=== PATIENT | female | born 1970 ===

== ENCOUNTER 2018-01-13 18:11 | Emergency (ER) | payer BC ==
[2018-01-13 18:28] VITALS: O2SAT 98
[2018-01-13 18:58] LABS: BASO % 0.4 % (0.0-2.0); EOS # 0.5 K/uL (0.0-0.7); EOS % 6.8 % (0.0-4.0); HEMOGLOBIN 11.7 g/dL (12.0-16.0); LYMPH # 1.9 K/uL (1.0-4.3); LYMPH % 27.6 % (20.0-40.0); MEAN CELL VOLUME 87.7 fl (81.0-99.0); MEAN CORPUSCULAR HEMOGLOBIN 29.1 pg (27.0-31.0); MEAN CORPUSCULAR HGB CONC 33.1 g/dL (33.0-37.0); MEAN PLATELET VOLUME 9.3 fl (7.2-11.7); MONO % 14.1 % (0.0-10.0); NEUT # 3.5 K/uL (1.8-7.0); NEUT % 51.1 % (50.0-75.0); NRBC % 0.1 % (0.0-0.0); RBC 4.04 Mil/uL (3.80-5.20); RED CELL DISTRIBUTION WIDTH 12.2 % (11.5-14.5); WHITE BLOOD COUNT 6.9 K/uL (4.8-10.8)
--- NOTE | 2018-01-13 18:58 | ED PDOC ---
HPI: SOB/CHF/COPD Time Seen by Provider: 01/13/18 18:32 Chief Complaint (Nursing): Shortness Of Breath Chief Complaint (Provider): Difficulty breathing History Per: Patient History/Exam Limitations: no limitations Onset/Duration Of Symptoms: Hrs (at 11 am ) Current Symptoms Are (Timing): Better Additional Complaint(s): 47 year old female with no significant past medical history presents to the ED with difficulty breathing. Patient states symptoms started a couple of weeks ago and intermittently bothers her. Today, at 11 am, she began having difficulty breathing and it has been continuous since then. She notes, that it was worse at 11 and has been getting better. Patient denies any chest pain, leg pain, cough, fever or any other associated complaints. She denies having this problem in the past and has not seen a PMD in over a year. Patient is not currently on control and has not recently travelled. PMD: none Past Medical History Reviewed: Historical Data, Nursing Documentation, Vital Signs Vital Signs: Last Vital Signs Temp 98.7 F 01/13/18 18:23 Pulse 95 H 01/13/18 18:23 Resp 19 01/13/18 18:40 BP 122/77 01/13/18 18:23 Pulse Ox 98 01/13/18 18:23 - Medical History PMH: No Chronic Diseases Denies: Chronic Kidney Disease - Surgical History Surgical History: No Surg Hx - Family History Family History: States: No Known Family Hx - Home Medications Home Medications: Ambulatory Orders Medication Instructions Recorded RX: No Known Home Med 01/13/18 - Allergies Allergies/Adverse Reactions: Allergies Allergy/AdvReac Type Severity Reaction Status Date / Time No Known Allergies Allergy Verified 01/13/18 18:28 Wells Criteria for PE - Wells Criteria for Pulmonary Embolism Clinical Signs and Symptoms of DVT: No P.E is #1 Diagnosis, or Equally Likely: No Heart Rate >100: No Immobilization at least 3 days;Surgery previous 4 weeks: No Previous, objectively diagnosed PE or DVT: No Hemoptysis: No Malignancy w/treatment within 6 months, or palliative: No Total Score: 0 Review of Systems ROS Statement: Except As Marked, All Systems Reviewed And Found Negative Respiratory: Positive for: Other (difficulty breathing) Physical Exam - Reviewed Nursing Documentation Reviewed: Yes Vital Signs Reviewed: Yes - Physical Exam Head Exam: Positive for: ATRAUMATIC, NORMOCEPHALIC Skin: Positive for: Normal Color Eye Exam: Positive for: Normal appearance, EOMI, PERRL ENT: Positive for: Normal ENT Inspection Cardiovascular/Chest: Positive for: Regular Rate, Rhythm. Negative for: Murmur Respiratory: Positive for: Normal Breath Sounds. Negative for: Respiratory Distress Gastrointestinal/Abdominal: Positive for: Normal Exam, Soft. Negative for: Tenderness Extremity: Positive for: Normal ROM (upper and lower). Negative for: Pedal Edema, Deformity Neurologic/Psych: Positive for: Alert, Oriented (x3) - Laboratory Results Result Diagrams: 01/13/18 18:53 01/13/18 18:53 - ECG O2 Sat by Pulse Oximetry: 98 (RA) Pulse Ox Interpretation: Normal - Progress Re-evaluation Time: 23:20 Condition: Re-examined, Improved Medical Decision Making Medical Decision Making: Time: 184 Initial Impression: Dyspnea Differential diagnoses include but are not limited to: PE, ACS, CHF, other conditions considered but not listed. Initial Plan: --EKG --BNP --BMP --Troponin --Urine preg --Urine dip --CBC with differentials --D dimer --CXR Time: 21:57 CXR FINDINGS: LUNGS: No active pulmonary disease. PLEURA: No significant pleural effusion identified. No pneumothorax apparent. CARDIOVASCULAR: No aortic atherosclerotic calcification present. Normal cardiac size. No pulmonary vascular congestion. OSSEOUS STRUCTURES: No significant abnormalities. VISUALIZED UPPER ABDOMEN: Normal. OTHER FINDINGS: None. IMPRESSION: No active disease. Time:22:55 CT Chest FINDINGS: PULMONARY ARTERIES Pulmonary embolism not identified AORTA There is no evidence for aneurysm or dissection of the thoracic aorta. LUNGS The lungs appear clear. PLEURAL SPACES Bilateral tiny layering pleural effusions. HEART No infiltrates. Heart not enlarged. LYMPH NODES No lymphadenopathy is evident. BONES No focal osseous abnormality or acute fracture. UPPER ABDOMEN Images of the upper abdomen are unremarkable. MISCELLANEOUS: Dense thymic tissue which appears to extend into the aortopulmonary window, see series 3 image 40, left margin bulging outward, recommend thoracic surgery consult on nonurgent basis IMPRESSION: 1. Pulmonary embolism not identified 2. Dense thymic tissue which appears to extend into the aortopulmonary window, see series 3 image 40, left margin bulging outward, recommend thoracic surgery consult on nonurgent basis 3. Bilateral tiny layering pleural effusions. 4. No infiltrates. Heart not enlarged. Scribe Attestation: Documented by Anna Castaneda, acting as a scribe for Pat Pandya MD Provider Scribe Attestation: All medical record entries made by the Scribe were at my direction and personally dictated by me. I have reviewed the chart and agree that the record accurately reflects my personal performance of the history, physical exam, medical decision making, and the department course for this patient. I have also personally directed, reviewed, and agree with the discharge instructions and disposition Disposition - Clinical Impression Clinical Impression: Large thymus, Dyspnea - Patient ED Disposition Is Patient to be Admitted: No Counseled Patient/Family Regarding: Studies Performed, Diagnosis, Need For Followup - Disposition Referrals: Juan Luis Camargo MD [Non-Staff] - Disposition: Routine/Home Disposition Time: 23:24 Condition: GOOD Additional Instructions: BRENNA GONZALEZ, thank you for letting us take care of you today. Your provider was Pat Pandya MD and you were treated for DIFFICULTY BREATHING. The emergency medical care you received today was directed at your acute symptoms. If you were prescribed any medication, please fill it and take as directed. It may take several days for your symptoms to resolve. Return to the Emergency Department if your symptoms worsen, do not improve, or if you have any other problems. Please contact your doctor or call one of the physicians/clinics you have been referred to that are listed on the Patient Visit Information form that is included in your discharge packet. Bring any paperwork you were given at discharge with you along with any medications you are taking to your follow up visit. Our treatment cannot replace ongoing medical care by a primary care provider outside of the emergency department. Thank you for allowing the [facility] team to be part of your care today. If you had an X-Ray or CT scan: A Radiologist will review the ED reading if any change in treatment is needed we will contact you. If you had a blood, urine, or wound culture: It will take several days for the results, if any change in treatment is needed we will contact you. If you had an STI test: It will take 48 hours for the results. Please call after 1 week if you have not heard back. Instructions: Shortness of Breath (Dyspnea) (DC) Forms: Bens[employer] (Chinese) Print Language: DIVEHI BRYANT Risk Score for UA/NSTEMI - BRYANT Risk Score Age > 64: NO 3 or more CAD Risk Factors: NO Known CAD (Stenosis greater than 50%): NO Aspirin use in past 7 days: NO Severe Angina: NO EKG ST changes greater than 0.5mm: NO Positive Cardiac Marker: NO BRYANT Score: 0 % risk at 14 days of: all cause mortality, new or recurrent ND, or severe recurrent ischemia requiring urgen revascularization: 5%
[2018-01-13 19:23] LABS: BLOOD UREA NITROGEN 6 mg/dl (7-17); CALCIUM 9.1 mg/dL (8.4-10.2); GFR NON-AFRICAN AMERICAN > 60
[2018-01-13 19:26] LABS: B-TYPE NATRIURETIC PEPTIDE 678 pg/ml (0-450)
[2018-01-13] MEDS ORDERED: Iodixanol 320 MG/ML 100 ML BOTTLE IV ONE (21:13)
[2018-01-13] MEDS ORDERED: Sodium Chloride 0.9% 50 ML IV ONE (21:14)
--- NOTE | 2018-01-13 22:01 | RAD ---
Date of service: 01/13/2018 HISTORY: dyspnea COMPARISON: No prior. TECHNIQUE: Chest PA and lateral FINDINGS: LUNGS: No active pulmonary disease. PLEURA: No significant pleural effusion identified. No pneumothorax apparent. CARDIOVASCULAR: No aortic atherosclerotic calcification present. Normal cardiac size. No pulmonary vascular congestion. OSSEOUS STRUCTURES: No significant abnormalities. VISUALIZED UPPER ABDOMEN: Normal. OTHER FINDINGS: None. IMPRESSION: No active disease.
[2018-01-13 23:46] VITALS: BP 141/76; PULSE 87; RESP 17; TEMP 98.2
--- NOTE | 2018-01-14 07:51 | CT ---
Date of service: 01/13/2018 PROCEDURE: CT Chest with contrast (Pulmonary Angiogram) HISTORY: chest pain COMPARISON: None available. TECHNIQUE: Axial computed tomography images were obtained of the chest in the pulmonary arterial phase of enhancement. Coronal and sagittal reformatted images were created and reviewed. Intravenous contrast dose: Radiation dose: Total exam DLP = 162.58 mGy-cm. This CT exam was performed using one or more of the following dose reduction techniques: Automated exposure control, adjustment of the mA and/or kV according to patient size, and/or use of iterative reconstruction technique. FINDINGS: PULMONARY ARTERIES: Unremarkable. No pulmonary embolism. AORTA: No acute findings. No thoracic aortic aneurysm. No aortic atherosclerotic calcification or mural plaque present. LUNGS: Unremarkable. No nodule, mass or pulmonary consolidation. PLEURAL SPACES: Small bilateral pleural effusions. HEART: Unremarkable. No cardiomegaly. No significant pericardial effusion. LYMPH NODES: No lymphadenopathy. BONES, CHEST WALL: Unremarkable. No fracture or destructive lesion OTHER FINDINGS: Prominent anterior mediastinal soft tissue density, possibly representing thymic hyperplasia. Recommend thoracic surgery consult.. IMPRESSION: No pulmonary embolism. Bilateral small pleural effusions. Prominent anterior mediastinal soft tissue density, possibly representing thymic hyperplasia. Recommend thoracic surgery consult.
--- NOTE | 2018-01-15 07:51 | CARD ---
APPROVED REPORT Date of service: 01/13/2018 EKG Measurement Heart [id number] <Conclusion> Normal sinus rhythm Normal Electrocardiogram
== END 2018-01-13 23:45 | disposition home or self-care (01) ==
LOC: H.ER 18:11
DX: R06.00 Dyspnea, unspecified (principal); N90.61 Childhood asymmetric labium majus enlargement
CPT/HCPCS: 71046; 71275; 80048; 81025; 83880; 84484; 85025; 85378; 99283; Q9967